=== PATIENT | female | born 1950 | race Caucasian/White ===

== ENCOUNTER → 2016-07-29 | Outpatient (CLI) | payer OTHER ==
[~2016-07-29] VITALS: Ht 172.7 cm; Wt 89.8 kg
[~2016-07-29] MED LIST: ABILIFY 2 MG2 M1 PO; ALLERGY10 M2 PO; ALPRAZOLAM 0.50.5 M1 PO; AMATIZA PO; AMBIEN 10 MG TA10 MG PO; AMBIEN CR 6.26.25 MG PO; AMBIENCR PO; AMITIZA 24 MCG24 MC1 PO; AMITRIPTYLINE H75 M1 PO; BACTRIM DS TAB1 EACH PO; BENICAR HCT 201 EACH PO; BENICAR20 MG PO; BRINTELLIX20 MG PO; BUSPIRONE HCL10 MG PO; CALCITRIOL0.5 MCG PO; CALTRATE-600 W1 EACH PO; CENTRUM TABLET1 EACH PO; CEVIMELINE HCL30 MG PO; CHLOR-TABLET4 MG PO; CIPROFLOXACIN500 M1 PO; CLONAZEPAM; CLONAZEPAM 0.50.5 M1 PO; CLONAZEPAM 1 MG1 M1 PO; CLONAZEPAM OR; CLONAZEPAM PO; COLACE100 MG PO; CORN SILK PO; CYMBALTA60 MG PO; DEPAKOTE 250MG250 M1 PO; DESYREL PO; DESYREL50 MG PO; DEXILANT60 MG PO; DIGESTIVE ENZY1 EAC2; ESTROGEL50 GM TD; EYE DROPS; FETZIMA PO; FISH OIL 1,001000 M2 PO; FLAX SEED OIL1000 MG PO; FLOMAX0.4 MG PO; FLUDROCORTISON0.1 MG PO; GEODON40 MG PO; GEODON60 MG PO; GEODON80 MG PO; GOTU KOLA PO; HORSETAIL PO; HYDROCODON-ACE1 EAC5; HYDROCODON-ACE1 EAC5 PO; HYDROCODON-ACE1 EAC7 PO; LAMICTAL XR50 MG PO; LAMOTRIGINE100 MG PO; LEVOTHYROXIN0.112 M1 PO; LEVOTHYROXINE0.05 MG PO; LEVOXYL25 MCG PO; MARSHMALLOW ROOT PO; METHOCARBAMOL750 MG PO; MIDODRINE HCL10 MG PO; MIDODRINE HCL2.5 M1 PO; MIRALAX17 GM PO; MIRALAX255 GM PO; MIRAPEX 0.250.25 M1 PO; MIRAPEX0.25 MG PO; MIRAPEX1 MG PO; NEURONTIN 300300 M1 PO; NEURONTIN 400400 M1 PO; NEURONTIN800 MG PO; NORCO 10-325 T1 EACH PO; NORCO 5-325 TA1 EACH PO; NORCO 7.5-3251 EACH PO; NUCYNTA50 MG PO; OLANZAPINE7.5 MG PO; ONDANSETRON HCL4 M2 PO; ONDANSETRON ODT4 MG PO; OXYCODONE-ACET1 EACH PO; PERCOCET 5-3251 EACH PO; PERCOCET OR; POLYETHYLENE G255 GM PO; POTASSIUM PO; POTASSIUM20 PO; PRELIEF65 MG PO; PREMARIN; PREMARIN0.45 MG PO; PREVACID 30MG C30 M1 PG; PREVACID 30MG C30 M1 PO; PROAIR HFA8.5 GM INH; PROTONIX40 M1 PO; PROZAC40 MG PO; REMERON15 MG PO; RESTASIS1 EACH OP; RESTASIS1 EACH OPHTHALMIC; ROBAXIN 750 MG750 M1 PO; SEROQUEL 25 MG25 M1 PO; SEROQUEL XR 30300 M1 PO; SKELAXIN 800 M800 M1 PO; SM FISH OIL 1,1 EACH PO; TAMSULOSIN HCL0.4 M1 PO; TIZANIDINE; TIZANIDINE HCL 22 M1 PO; TIZANIDINE HCL2 M1 PO; TIZANIDINE PO; TRAMADOL 50 MG50 MG PO; TRAZODONE 150150 M1 PO; TRAZODONE HCL PO; TUMS PO; UNICOMPLEX M TA1 TA1 PO; VIIBRYD20 MG PO; VIIBRYD40 MG PO; VITAMIN A PO; VITAMIN D-32000 UNIT PO; VITAMIN E400 UNIT PO; VITCB500GO PO; VOLTAREN GEL 1100 G1 TOP; WELLBUTRIN 75 M75 M1 PO; WELLBUTRIN XL300 MG PO; XANAX 0.5 MG0.5 M1 PO; XANAX XR2 MG PO; ZANAFLEX2 M1 PO; ZYPREXA 5 MG TAB5 M1 PO; [UNRECOGNIZED DRUG - CODE]; [UNRECOGNIZED DRUG - OTHER] PO; [UNRECOGNIZED DRUG - OTHER] PO; [UNRECOGNIZED DRUG - OTHER] PO
--- NOTE | ~2016-07-29 | HPC ---
[facility] [address] [place] [address] PAIN MANAGEMENT CONSULTATION Name: RUPA NELSON Room #: REG [facility] Marcia#: [id number] Admission: 07/29/16 Attend Phys: Manuelito Ascencio DO Discharge: Date of : 54 Report #: [id number] THIS REPORT FOR: //name// CC: Negin Ascencio The patient is a pleasant 65-year-old female typically treated for lumbar radiculopathy status post decompressive laminectomy, neuropathic pain requiring complex medication management. She has a spinal cord stimulator in place for lumbar radicular symptoms. Last visit was 03/25/2016. The patient was continued on baseline medication including hydrocodone 10/325 up to 4 a day, though 120 tablets typically lasts her 6-10 weeks. 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 She was referred to [facility] orthopedic group. She did have a steroid injection in her knee and symptoms nicely resolved. She returns to pain clinic today actually for a new complaint (recurrence of a prior cervical radicular issue for which she had been treated in April 2014). She notes back in April 2014, she had had a cervical epidural injection with dramatic improvement of baseline pain. She notes cervical radicular symptoms are beginning to recur without specific antecedent trauma. She notes pain in her neck, shoulders, left greater than right, paresthesia going into her fingers and hand. Rates her pain as 8 on a 0-10 visual analog scale. Seems to be exacerbated with activity, has been taking minimum medication with some efficacy. PHYSICAL EXAMINATION: VITAL SIGNS: Shows a 65-year-old female, BMI is 30.1 kilograms per meter squared, blood pressure is 117/89, pulse 69, respirations 15. NECK: Cervical range of motion is modestly limited. Positive Lhermitte's with some muscle tension noted in the trapezius and splenius capitis. EXTREMITIES: Upper extremity strength is generally symmetric, but modestly diminished about 3-4/5 to all muscle groups tested. DIAGNOSTIC STUDIES: Include an MRI from February 2014 noting cervical spondylosis at several levels, no dramatic likely surgical pathology noted. ASSESSMENT: Symptomatic cervical radiculopathy by clinical exam. The patient has had very significant relief with single cervical epidural injection nearly 2-1/2 years ago in April 2014. RECOMMENDATION: 1. We will refer to physical therapy. 2. We will trial Skelaxin for some muscle spasm. Methocarbamol did not have significant efficacy, tizanidine caused untoward sedation. Prescription for tizanidine 800 mg t.i.d. generated. Continue gabapentin 800 mg 1 in the morning, 1 at noon, 1-1/2 at night; dispense #105 tablets with two refills. [address] [address] PAIN MANAGEMENT CONSULTATION Name: RUPA NELSON Room #: REG [facility] Marcia#: [id number] Admission: 07/29/16 Attend Phys: Manuelito Ascencio DO Discharge: Date of : 54 Report #: [id number] Lastly, we will renew hydrocodone , dispensed 120 tablets. We reviewed the fact that opiate medications are being used to provide analgesia adequate to support activities of daily living, not attempting to achieve a specific pain score on the 0-10 Visual Analog Scale. The current opiate medications are providing sufficient analgesia to allow the patient to participate in activities of daily living. The patient is not exhibiting any aberrant behavior suggestive of drug diversion. The patient is not having any adverse reactions to medications. The patient is not suffering from daytime somnolence or mental acuity changes. The patient is managing opiate-induced constipation with appropriate joie-ipd-sxorjiy agents and dietary considerations. The patient was counseled on concern for caution with operating a motor vehicle while using opiate medications. A physical exam was performed and the patient's functional status was evaluated. All patients with back pain were advised against the bed rest greater than 4 days and were advised to return to normal activities. Pain score assessment was noted and the treatment plan was reviewed with the patient. All current medications, both prescribed and OTC were reviewed and reconciled on the electronic medical record. Tobacco screening was accomplished and smoking cessation was advised when indicated. BMI was noted and diet/exercise modification was recommended for all patients following outside normal parameters. I reviewed with the patient today their responsibilities to safeguard prescription medications, reviewed their responsibility to utilize medications only as prescribed by the physician. They are to seek and receive pain medications only from 1 physician group ( [facility]). They are to use 1 pharmacy and keep the clinic informed if they change pharmacies. Their responsibilities include making followup visits in a timely fashion and to avoid abrupt discontinuation of medication usage. Their responsibilities further include bringing their medications (bottles from the pharmacy with residual pills) to the visit for possible confirmation of pill counts and the patient understands it is their responsibility to submit to random drug screens to ensure both that the medications prescribed are present, and that no other controlled substances are present. All prescriptions provided today were generated electronically. ASSESSMENT: Acute exacerbation, symptomatic cervical radiculopathy. PROCEDURE: Cervical epidural injection under fluoroscopy. PROCEDURE NOTE: After written and informed consent was obtained including risk of dural puncture, spinal cord trauma, paralysis and increased pain, the patient was taken to the fluoroscopy suite and placed in the prone position, with appropriate abdominal bolstering, neck was flexed, palms under the thighs. Skin was prepped with ChloraPrep. Sterile draping was applied. Skin wheal with 1% Xylocaine was raised. A 22-gauge 3-1/2 inch epidural Tuohy needle was placed via a midline approach at the C7-T1 interspace, advanced under biplanar [address] [address] PAIN MANAGEMENT CONSULTATION Name: RUPA NELSON Room #: REG Vida Kennedy#: [id number] Admission: 07/29/16 Attend Phys: Manuelito Ascencio DO Discharge: Date of : 54 Report #: [id number] fluoroscopy using continuous loss of resistance. With appropriate loss of resistance at the expected depth on lateral view, the glass loss of resistance syringe was disconnected. A low volume extension tubing was connected to the needle and a 5 mL syringe. Negative aspiration for cerebrospinal fluid or blood was noted. One mL of Omnipaque was injected which showed spread within the epidural space on biplanar fluoroscopy. This was followed with 80 mg of triamcinolone plus 1 mL of 1.5% preservative Xylocaine. Needle was withdrawn to the interspinous ligament, 0.5 mL of Xylocaine was used to flush the needle. The needle was then completely withdrawn. The area was cleansed. Band-Aid was applied. The patient was allowed to move off the procedure table and ambulated to the recovery room, monitored for an appropriate period of time, discharged in good and stable condition. <ELECTRONICALLY SIGNED> By: Manuelito Ascencio DO 08/04/16 1031 [id number] Manuelito Ascencio DO /nt
[2016-07-29 13:50] VITALS: BP 117/89
== END | disposition home or self-care (01) ==
LOC: PAIN 07:31
DX: M54.12 Radiculopathy, cervical region (principal); Z87.891 Personal history of nicotine dependence; Z98.890 Other specified postprocedural states

== ENCOUNTER → 2016-10-28 | Outpatient (CLI) | payer OTHER ==
[~2016-10-28] VITALS: Ht 172.7 cm; Wt 98.4 kg
[~2016-10-28] MED LIST changes: +BUSPIRONE HCL15 MG PO; +LEVOTHYROXINE 0.1 MG PO; +OLANZAPINE20 MG PO; +RESTORIL15 MG PO
--- NOTE | ~2016-10-28 | HPC ---
[facility] [place] [address] [place] [address] PAIN MANAGEMENT CONSULTATION Name: RUPA NELSON Room #: REG [facility] Marcia#: [id number] Admission: 10/28/16 Attend Phys: Manuelito Ascencio DO Discharge: Date of : 54 Report #: [id number] THIS REPORT FOR: //name// CC: Negin Ascencio DATE OF SERVICE: 10/28/2016 The patient is a 65-year-old female, being treated for lumbar radiculopathy, status post decompressive laminectomy, ____ cervical radiculopathy and neuropathic pain requiring complex medication management. Last seen in pain clinic on 07/29/2016. I wrote for physical therapy for home exercise regimen for upper back and neck pain. Diagnosed with cervical radiculopathy and thoracic paravertebral muscle spasm. Unfortunately, the patient failed to act on this. She returns to pain clinic today noting medications are helpful. She uses spinal cord stimulator 24 hours a day. She has to charge it every 3-4 days for about 2 hours. Coverage is half way of her back and down her feet. She notes her low back pain is her rate limiting pain when doing house work. Again, primarily low back pain that is chronic, some radiation in the hips and legs. Some prior right knee DJD, had a steroid injection of the right knee by orthopedic surgeon about [address] Hyde injected Synvisc recently. She has not noticed significant efficacy yet. I suggested if it does not seem to be getting better, she may follow up with the orthopedic surgeon for consideration for total knee arthroplasty if indicated. PHYSICAL EXAMINATION: Shows 65-year-old female, BMI is 33 kg/m2. Vital signs stable as noted in the EMR. Somewhat flat affect. She has been working with her psychiatrist, managing multiple central acting agents including Buspirone 15 mg daily, olanzapine 20 mg at bedtime, Wellbutrin 300 mg a.m., clonazepam 2 mg at bedtime. From a pain standpoint, the patient does take gabapentin 800 mg one in the morning, one at noon, and one and a half at night. Metaxalone 800 mg up to 3 times a day for muscle spasm and hydrocodone 10/325 one tablet up to 4 times a day, though typically she averages 2-3. Last prescription for 120 tablets was 08/02/2016, clearly taking less than even two a day. We reviewed the fact that opiate medications are being used to provide analgesia adequate to support activities of daily living, not attempting to achieve a specific pain score on the 0-10 Visual Analog Scale. The current opiate medications are providing sufficient analgesia to allow the patient to participate in activities of daily living. The patient is not exhibiting any aberrant behavior suggestive of drug diversion. The patient is not having any adverse reactions to medications. The patient is not suffering from daytime somnolence or mental acuity changes. The patient is managing opiate-induced constipation with appropriate lkhb-ako-sikoxow agents and dietary considerations. The patient was counseled on concern for caution with operating a motor vehicle while using opiate medications. [address] [address] PAIN MANAGEMENT CONSULTATION Name: RUPA NELSON Room #: REG CL[facility]ida Kennedy#: [id number] Admission: 10/28/16 Attend Phys: Manuelito Ascencio DO Discharge: Date of : 54 Report #: [id number] A physical exam was performed and the patient's functional status was evaluated. All patients with back pain were advised against the bed rest greater than 4 days and were advised to return to normal activities. Pain score assessment was noted and the treatment plan was reviewed with the patient. All current medications, both prescribed and OTC were reviewed and reconciled on the electronic medical record. Tobacco screening was accomplished and smoking cessation was advised when indicated. BMI was noted and diet/exercise modification was recommended for all patients following outside normal parameters. I reviewed with the patient today their responsibilities to safeguard prescription medications, reviewed their responsibility to utilize medications only as prescribed by the physician. They are to seek and receive pain medications only from 1 physician group ( [facility]). They are to use 1 pharmacy and keep the clinic informed if they change pharmacies. Their responsibilities include making followup visits in a timely fashion and to avoid abrupt discontinuation of medication usage. Their responsibilities further include bringing their medications (bottles from the pharmacy with residual pills) to the visit for possible confirmation of pill counts and the patient understands it is their responsibility to submit to random drug screens to ensure both that the medications prescribed are present, and that no other controlled substances are present. All prescriptions provided today were generated electronically. ASSESSMENT: Cervical radiculopathy by history, lumbar radiculopathy status post decompressive laminectomy, neuropathic pain requiring complex medication management, stable on baseline medication. Good relief with single epidural injection at last visit in July. Greater than 60% relief ongoing with primary pain being low back at this point. RECOMMENDATION: Continue current schedule 2 narcotic unchanged, hydrocodone 10/325 up to 4 times a day, though typically she uses much less than this. We will have her follow up when this prescription starts to run out. Continue Skelaxin 800 mg up to t.i.d., prescription renewed today, continue gabapentin. She does not require this prescription renewed. I did recreate the physical therapy consult and discuss with the patient rationale for wanting her to engage in regular range of motion, stretching and activity. She has a component of myofascial pain with upper back muscle tenderness, which becomes problematic more and still in the mornings. Recommended routine exercise range of motion to help with "myofascial" type pain, strengthen core muscles, improve balance and help with osteoporosis. Discharged in good and stable condition. By: [id number] Manuelito Ascencio, DO /nt
[2016-10-28 12:40] VITALS: BP 122/81
== END ==
LOC: PAIN 07:06
DX: M54.16 Radiculopathy, lumbar region (principal); M96.1 Postlaminectomy syndrome, not elsewhere classified; I10 Essential (primary) hypertension; Z87.891 Personal history of nicotine dependence; F32.9 Major depressive disorder, single episode, unspecified

== ENCOUNTER → 2016-12-30 | Outpatient (CLI) | payer OTHER ==
[~2016-12-30] VITALS: Ht 172.7 cm; Wt 97.3 kg
[~2016-12-30] MED LIST changes: +ESTRADIOL; +HYDRALAZINE 10M10 MG PO; +SUPER B COMPLE150 MG PO; +VITAMIN D1000 UNIT PO; +WELLBUTRIN XL150 MG PO
--- NOTE | ~2016-12-30 | HPC ---
[facility] [address] [address] [place] [address] PAIN MANAGEMENT CONSULTATION Name: RUPA NELSON [id number] Admission: 12/30/16 Attend Phys: Manuelito Ascencio DO Discharge: Date of : 54 Report #: [id number] THIS REPORT FOR: //name// CC: Negin Ascencio DATE OF SERVICE: 12/30/2016 The patient is a very pleasant 66-year-old female typically treated for lumbar radiculopathy status post decompressive laminectomy, history of cervical radiculopathy, neuropathic pain requiring complex medication management. She was last seen in the pain clinic 10/28/2016, continued on hydrocodone 10/325 up to 4 a day, Skelaxin 800 mg t.i.d., and gabapentin. Prior epidural injection in July afforded about 60% ongoing relief. Returns to pain clinic today noting medications are generally providing sufficient analgesia to participate in activities of daily living, chronic low back pain with some recent flareup a month ago with radicular pain going down the right leg. She rates the pain a 4/10, exacerbated with bending. PHYSICAL EXAMINATION: Shows a 66-year-old female, somewhat flat affect, compatible with her history, multiple psychiatric drugs used including olanzapine, temazepam at bedtime, bupropion, clonazepam, mirtazapine. Rises from the chair using armrest. Gait is tandem. Diffuse tenderness across the low back, positive straight leg raise bilaterally. Vital signs stable as noted in the EMR. We reviewed the fact that opiate medications are being used to provide analgesia adequate to support activities of daily living, not attempting to achieve a specific pain score on the 0-10 Visual Analog Scale. The current opiate medications are providing sufficient analgesia to allow the patient to participate in activities of daily living. The patient is not exhibiting any aberrant behavior suggestive of drug diversion. The patient is not having any adverse reactions to medications. The patient is not suffering from daytime somnolence or mental acuity changes. The patient is managing opiate-induced constipation with appropriate nnro-ann-oxjugsj agents and dietary considerations. The patient was counseled on concern for caution with operating a motor vehicle while using opiate medications. A physical exam was performed and the patient's functional status was evaluated. All patients with back pain were advised against the bed rest greater than 4 days and were advised to return to normal activities. Pain score assessment was noted and the treatment plan was reviewed with the patient. All current medications, both prescribed and OTC were reviewed and reconciled on the electronic medical record. Tobacco screening was accomplished and smoking [address] [address] PAIN MANAGEMENT CONSULTATION Name: RUPA NELSON Room #: REG [facility] Marcia#: [id number] Admission: 12/30/16 Attend Phys: Manuelito Ascencio DO Discharge: Date of : 54 Report #: [id number] cessation was advised when indicated. BMI was noted and diet/exercise modification was recommended for all patients following outside normal parameters. I reviewed with the patient today their responsibilities to safeguard prescription medications, reviewed their responsibility to utilize medications only as prescribed by the physician. They are to seek and receive pain medications only from 1 physician group ( [facility]). They are to use 1 pharmacy and keep the clinic informed if they change pharmacies. Their responsibilities include making followup visits in a timely fashion and to avoid abrupt discontinuation of medication usage. Their responsibilities further include bringing their medications (bottles from the pharmacy with residual pills) to the visit for possible confirmation of pill counts and the patient understands it is their responsibility to submit to random drug screens to ensure both that the medications prescribed are present, and that no other controlled substances are present. All prescriptions provided today were generated electronically. ASSESSMENT #1: Symptomatic lumbar radiculopathy status post decompressive laminectomy, cervical radiculopathy, neuropathic pain requiring complex medication management. RECOMMENDATION: Continue hydrocodone 10/325 up to 4 a day, Skelaxin 800 mg t.i.d., gabapentin. Urine drug screen was accomplished today. No aberrant behavior suggestive for drug diversion. Simply, I noticed that with our opiate consent to treat contract, she has not had a urine screen in greater than a year. ASSESSMENT #2: Acute exacerbation of lumbar radiculopathy in a patient who is status post decompressive laminectomy. RECOMMENDATION: Repeat epidural injection under fluoroscopy today. She had excellent relief with injection back in July. PROCEDURE NOTE: Lumbar epidural injection under fluoroscopy. PROCEDURE NOTE: After both written and informed consent to include risk of spinal cord damage, increased pain, weakness and dural puncture, the patient was taken to the fluoroscopy suite, placed in the prone position. After sterile prep and drape, a skin wheal with lidocaine was raised. A 22-gauge epidural Tuohy needle was inserted in the midline at L5-S1 with good loss to resistance. Negative aspiration for cerebrospinal fluid or blood was noted. Then 1 mL of Omnipaque under biplanar fluoroscopy showed good spread within the epidural space. This was followed with 80 mg of triamcinolone plus 1 mL of 1.5% preservative-free Xylocaine, 0.5 mL Xylocaine was then injected to flush the [facility] [address] [place] [address] PAIN MANAGEMENT CONSULTATION Name: RUPA NELSON Room #: REG CLV[facility] GrossmanAlem#: [id number] Admission: 12/30/16 Attend Phys: Manuelito Ascencio DO Discharge: Date of : 54 Report #: [id number] needle; it was removed. The patient was monitored for an appropriate period of time and discharged in good and stable condition. <ELECTRONICALLY SIGNED> By: Manuelito Ascencio DO 12/31/16 0948 [id number] Manuelito Ascencio DO /nt
[2016-12-30 13:23] VITALS: BP 100/74
== END ==
LOC: PAIN 07:08
DX: M54.16 Radiculopathy, lumbar region (principal); M54.12 Radiculopathy, cervical region; I10 Essential (primary) hypertension; Z87.891 Personal history of nicotine dependence; M06.849 Other specified rheumatoid arthritis, unspecified hand; M71.20 Synovial cyst of popliteal space [Baker], unspecified knee

== ENCOUNTER → 2017-02-25 | Outpatient (CLI) | payer OTHER ==
[~2017-02-25] VITALS: Ht 172.7 cm; Wt 96.8 kg
--- NOTE | ~2017-02-25 | HPC ---
[facility] [address] [place] [address] PAIN MANAGEMENT CONSULTATION Name: RUPA NELSON [facility] [id number] Admission: 02/25/17 Attend Phys: Manuelito Ascencio DO Discharge: Date of : 54 Report #: [id number] THIS REPORT FOR: //name// CC: Negin Ascencio HISTORY OF PRESENT ILLNESS: The patient is a 66-year-old female last seen in pain clinic on 12/30/2016. She has a history of lumbar decompressive laminectomy, cervical radiculopathy requiring complex medication management. The patient was continued on hydrocodone 10/325 up to 4 a day, Skelaxin for spasm and gabapentin. Given epidural injection L5-S1. Urine drug screen at that time was positive for prescribed medications. She returns to the pain clinic today noting that the epidural injection afforded good relief of the radicular pain component, but she now has some pain over that left hip. Again, she notes about 80% improvement following the epidural injection, but the new pain is subsequent to a trip and fall while she was walking her dog. Very tender over the right trochanteric bursa. Pain is exacerbated with standing, walking and with active resistance to abduction. Passive rotation of the hip was unremarkable. Again, the radicular symptoms seemed to be somewhat improved overall. Subjective pain score is 5 on a VAS. PHYSICAL EXAMINATION: VITAL SIGNS: Show modest hypertension 160/90, pulse 91, and respirations 16. ASSESSMENT: 1. Symptomatic lumbar radiculopathy status post decompressive laminectomy, cervical radiculopathy requiring complex medication management, high risk medications. RECOMMENDATION: Continue medications unchanged, I have taken the liberty of renewing her Metaxalone 800 mg t.i.d. and hydrocodone 10/325 one tablet up to 4 times a day. She does not require renewal of the gabapentin. ASSESSMENT: 2. Acute exacerbation of right trochanteric bursitis. RECOMMENDATIONS: Trochanteric bursa injection today. PROCEDURE NOTE: After written informed consent was obtained, the patient was placed in the left lateral decubitus position. Skin overlying the right trochanteric bursa was cleansed with ChloraPrep. Skin wheal with Xylocaine was raised. A 22-gauge stylet needle was placed to contact the point of maximal tenderness over the right trochanteric bursa and the stylet was removed, [address] [address] PAIN MANAGEMENT CONSULTATION Name: RUPA NELSON Room #: REG [facility] Marcia#: [id number] Admission: 02/25/17 Attend Phys: Manuelito Ascencio DO Discharge: Date of : 54 Report #: [id number] triamcinolone plus 3 mL of 0.5% preservative-free bupivacaine was injected. Needle was removed. The area was cleansed, Band-Aids applied. The patient was told to watch area for infection, ice today. Follow up simply as needed for medication management. Continue range of motion and activity. By: [id number] Manuelito Ascencio, DO /nt
[2017-02-25 11:10] VITALS: BP 160/90
== END | disposition home or self-care (01) ==
LOC: PAIN 01-20 08:05
DX: M70.61 Trochanteric bursitis, right hip (principal); G89.29 Other chronic pain; M54.16 Radiculopathy, lumbar region; M54.12 Radiculopathy, cervical region; Z98.890 Other specified postprocedural states; Z79.891 Long term (current) use of opiate analgesic; Z87.891 Personal history of nicotine dependence; Z88.8 Allergy status to other drugs, medicaments and biological substances

== ENCOUNTER → 2017-04-22 | Outpatient (CLI) | payer OTHER ==
[~2017-04-22] VITALS: Ht 172.7 cm; Wt 98.0 kg
[~2017-04-22] MED LIST changes: +CALCIUM 500 +1 EAC5 PO
--- NOTE | ~2017-04-22 | HPC ---
[facility] [place] [address] PAIN MANAGEMENT CONSULTATION Name: RUPA NELSON Room #: REG [facility] Marcia#: [id number] Admission: 04/22/17 Attend Phys: Manuelito Ascencio DO Discharge: Date of : 54 Report #: [id number] THIS REPORT FOR: //name// CC: Oc Ascencio DATE OF SERVICE: 04/22/2017 The patient is a 66-year-old female well known to the pain clinic, typically treated for lumbar radiculopathy status post decompressive laminectomy, cervical radiculopathy, requiring high risk complex medication management. She has a spinal cord stimulator in place. Last visit, 02/25/2017, we did a right trochanteric bursa injection for acute right leg pain. This gave her excellent relief. She prior had epidural injections, cervical epidural injection in July and lumbar epidural injection in December. She returns to pain clinic today, noting she was actually doing quite well until she suffered a fall, she fell 3 weeks ago, striking her right hip. She was camping and simply tripped over a trivial object. She notes pain is quite problematic, she rates it a 5 on VAS, chronic low back pain, but exquisite pain over the right hip, exacerbated by standing, walking, weightbearing. PHYSICAL EXAMINATION: GENERAL: Shows 66-year-old female, BMI is 32.9 kg per meter squared. VITAL SIGNS: Stable, as noted in the EMR. MUSCULOSKELETAL: Rises from chair using armrest, antalgic gait favoring the right leg. Passive rotation of the right hip significantly exacerbates pain. Active abduction; however, does not exacerbate pain, pointing more to primary hip pathology rather than trochanteric bursitis. We discussed this with the patient today at length. The patient continues to take hydrocodone 10/325 one tablet 2-3 times a day, last 120 tablets prescription 02/25/2017 lasted about 6 weeks. Metaxalone 800 mg t.i.d. for spasm has been efficacious as well. ASSESSMENT: 1. Lumbar radiculopathy status post decompressive laminectomy; chronic pain syndrome; cervical radiculopathy by history, requiring high risk complex medication management, stable on baseline medications. Urine drug screen at last visit 12/30/2016 is positive for prescribed medication (hydrocodone and metabolites). 2. Acute right hip degenerative joint disease. We reviewed the fact that opiate medications are being used to provide analgesia adequate to support activities of daily living, not attempting to achieve a [address] [address] PAIN MANAGEMENT CONSULTATION Name: KOSTAKAVITARUPA A [id number] Admission: 04/22/17 Attend Phys: Manuelito Ascencio DO Discharge: Date of : 54 Report #: [id number] specific pain score on the 0-10 Visual Analog Scale. The current opiate medications are providing sufficient analgesia to allow the patient to participate in activities of daily living. The patient is not exhibiting any aberrant behavior suggestive of drug diversion. The patient is not having any adverse reactions to medications. The patient is not suffering from daytime somnolence or mental acuity changes. The patient is managing opiate-induced constipation with appropriate ysdx-uxj-fjozxya agents and dietary considerations. The patient was counseled on concern for caution with operating a motor vehicle while using opiate medications. A physical exam was performed and the patient's functional status was evaluated. All patients with back pain were advised against the bed rest greater than 4 days and were advised to return to normal activities. Pain score assessment was noted and the treatment plan was reviewed with the patient. All current medications, both prescribed and OTC were reviewed and reconciled on the electronic medical record. Tobacco screening was accomplished and smoking cessation was advised when indicated. BMI was noted and diet/exercise modification was recommended for all patients following outside normal parameters. I reviewed with the patient today their responsibilities to safeguard prescription medications, reviewed their responsibility to utilize medications only as prescribed by the physician. They are to seek and receive pain medications only from 1 physician group ( [facility]). They are to use 1 pharmacy and keep the clinic informed if they change pharmacies. Their responsibilities include making followup visits in a timely fashion and to avoid abrupt discontinuation of medication usage. Their responsibilities further include bringing their medications (bottles from the pharmacy with residual pills) to the visit for possible confirmation of pill counts and the patient understands it is their responsibility to submit to random drug screens to ensure both that the medications prescribed are present, and that no other controlled substances are present. All prescriptions provided today were generated electronically. RECOMMENDATION: Right hip joint injection under fluoroscopy. PROCEDURE: After written informed consent was obtained, patient was taken to the fluoroscopy suite and placed in the supine position. After sterile prep and drape, skin wheal with Xylocaine was raised. A 22-gauge stylet needle was placed to contact the proximal aspect of the right femur adjacent to the acetabulum. Negative aspiration was accomplished. 1 mL of Omnipaque was injected, which showed good arthrogram. This was followed with 40 mg triamcinolone plus 2 mL of 0.5% preservative-free bupivacaine. The patient was told to use ice to the area today, watch for signs of infection. Please note she was discharged in good and stable condition, noting significant improvement [address] [address] PAIN MANAGEMENT CONSULTATION Name: RUPA NELSON Room #: REG [facility]#: [id number] Admission: 04/22/17 Attend Phys: Manuelito Ascencio DO Discharge: Date of : 54 Report #: [id number] in her baseline pain, in fact noting her pain was down to 2 on a VAS. Follow up simply as needed. Fluoroscopy time was under 5 seconds. <ELECTRONICALLY SIGNED> By: Manuelito Ascencio DO 04/29/17 0657 [id number] [id number] Manuelito Ascencio DO /nt
[2017-04-22 10:09] VITALS: BP 132/89
== END | disposition home or self-care (01) ==
LOC: PAIN 07:11
DX: M16.11 Unilateral primary osteoarthritis, right hip (principal); M54.16 Radiculopathy, lumbar region; M54.12 Radiculopathy, cervical region; Z98.890 Other specified postprocedural states; Z68.32 Body mass index [BMI] 32.0-32.9, adult

== ENCOUNTER → 2017-07-07 | Outpatient (CLI) | payer OTHER ==
[~2017-07-07] VITALS: Ht 170.2 cm; Wt 104.3 kg
--- NOTE | ~2017-07-07 | HPC ---
[facility] [place] [address] PAIN MANAGEMENT CONSULTATION Name: RUPA NELSON Room #: REG Vida Grossman.#: [id number] Admission: 07/07/17 Attend Phys: Manuelito Ascencio DO Discharge: Date of : 54 Report #: [id number] THIS REPORT FOR: //name// CC: Oc Ascencio The patient is a 66-year-old female, typically treated for lumbar radiculopathy status post decompressive laminectomy, history of cervical radiculopathy requiring high risk complex medication management. Today, she was complaining specifically of pain primarily in the right gluteal area. She does have trigger points in the piriformis and gluteus ángel. Rates her pain 8 on a VAS. Prior right hip injection at last visit afforded only nominal relief per the patient. She continues to take hydrocodone 10 mg up to 4 times a day, though 120 tablets lasted about 6 weeks last time. The patient was in the ER 07/04/2017, with some right leg pain. Incidentally, a urine drug screen 12/30/2016, was positive for prescribed medications. PHYSICAL EXAMINATION: Today, again does show a 66-year-old female, BMI is 36 kg/m2. Tender over the right gluteal area, some pain with piriformis contraction. Straight leg raise is negative. Rubi test is negative. Lower extremity strength is generally preserved. Well-healed surgical scar compatible with prior lumbar decompressive laminectomy. We reviewed the fact that opiate medications are being used to provide analgesia adequate to support activities of daily living, not attempting to achieve a specific pain score on the 0-10 Visual Analog Scale. The current opiate medications are providing sufficient analgesia to allow the patient to participate in activities of daily living. The patient is not exhibiting any aberrant behavior suggestive of drug diversion. The patient is not having any adverse reactions to medications. The patient is not suffering from daytime somnolence or mental acuity changes. The patient is managing opiate-induced constipation with appropriate onxi-qaa-tqchfbg agents and dietary considerations. The patient was counseled on concern for caution with operating a motor vehicle while using opiate medications. A physical exam was performed and the patient's functional status was evaluated. All patients with back pain were advised against the bed rest greater than 4 days and were advised to return to normal activities. Pain score assessment was noted and the treatment plan was reviewed with the patient. All current medications, both prescribed and OTC were reviewed and reconciled on the electronic medical record. Tobacco screening was accomplished and smoking cessation was advised when indicated. BMI was noted and diet/exercise modification was recommended for all patients following outside normal parameters. [address] [address] PAIN MANAGEMENT CONSULTATION Name: RUPA NELSON Room #: REG [facility] Kennedy#: [id number] Admission: 07/07/17 Attend Phys: Manuelito Ascencio DO Discharge: Date of : 54 Report #: [id number] I reviewed with the patient today their responsibilities to safeguard prescription medications, reviewed their responsibility to utilize medications only as prescribed by the physician. They are to seek and receive pain medications only from 1 physician group ( [facility]). They are to use 1 pharmacy and keep the clinic informed if they change pharmacies. Their responsibilities include making followup visits in a timely fashion and to avoid abrupt discontinuation of medication usage. Their responsibilities further include bringing their medications (bottles from the pharmacy with residual pills) to the visit for possible confirmation of pill counts and the patient understands it is their responsibility to submit to random drug screens to ensure both that the medications prescribed are present, and that no other controlled substances are present. All prescriptions provided today were generated electronically. ASSESSMENT: Lumbar radiculopathy status post decompressive laminectomy, history of cervical radiculopathy, requiring high risk complex medication management, stable on baseline medications. RECOMMENDATIONS: 1. Renew hydrocodone 10/325 up to 4 tablets a day, dispense 120 tablets. 2. Trigger point injection accomplished today, right gluteus ángel and piriformis under fluoroscopy. PROCEDURE NOTE: After written informed consent was obtained, the patient was taken to the fluoroscopy suite, placed in prone position. After sterile prep and drape, a skin wheal with Xylocaine was raised. A 6-inch 22-gauge Chiba needle was placed to contact the inferior aspect of the right SI joint. Depth was noted. Needle was withdrawn approximately 1 inch, redirected and advanced approximately 1-2 cm deeper past the SI joint into the piriformis muscle. A 20 mg triamcinolone plus 4 mL of 0.5% preservative-free bupivacaine plus 1.5% preservative-free Xylocaine with 1:20,000 epinephrine was injected. Attention was then directed at the gluteus ángel trigger point and the residual 20 mg of triamcinolone plus 4 mL of the local anesthetic was injected here. Needle was removed, the area was cleansed, Band-Aids applied. The patient was allowed to ambulate to recovery room. She did have some subjective weakness in the buttock and leg, she was monitored for appropriate time, discharged in stable condition. Follow up simply as needed. By: 0848 [id number] Manuelito Ascencio, DO /nt
[2017-07-07 12:46] VITALS: BP 121/81
== END | disposition home or self-care (01) ==
LOC: PAIN
DX: M79.1 Myalgia (principal); G89.29 Other chronic pain; M54.16 Radiculopathy, lumbar region; M54.12 Radiculopathy, cervical region; Z98.890 Other specified postprocedural states; Z87.891 Personal history of nicotine dependence; Z79.891 Long term (current) use of opiate analgesic; Z79.899 Other long term (current) drug therapy; Z88.6 Allergy status to analgesic agent

== ENCOUNTER 2017-07-24 17:15 | Emergency (ER) | payer OTHER ==
[~2017-07-24] VITALS: Ht 170.2 cm; Wt 104.3 kg
[2017-07-24 19:43] VITALS: BP 157/94
[2017-08-04] MEDS ORDERED: PERCOCET 7.5-31 EAC1 PO (12:55)
[2017-08-29] MEDS ORDERED: ROCALTROL0.5 MCG PO (11:28)
[2017-08-29] MEDS ORDERED: NORCO 7.5-3251 EACH PO (11:43)
[2017-08-29] MEDS ORDERED: HYDROCODON-ACE1 EAC5 PO (11:43)
[2017-08-29] MEDS ORDERED: PERCOCET 7.5-31 EACH PO (11:47)
[2017-08-29] MEDS ORDERED: PERCOCET 7.5-31 EAC1 PO (11:47)
[2017-09-08] MEDS ORDERED: AMITIZA 24 MCG24 MC1 PO (12:57)
[2017-09-08] MEDS ORDERED: NEURONTIN800 MG PO (13:17)
[2017-12-05] MEDS ORDERED: PERCOCET 5-3251 EACH PO (09:48)
[2018-01-05] MEDS ORDERED: XIIDRA1 EACH (09:33)
[2018-01-05] MEDS ORDERED: FLORINEF ACETA0.1 MG PO (09:33)
[2018-01-05] MEDS ORDERED: ASPIRIN325 PO (09:42)
[2018-01-05] MEDS ORDERED: PERCOCET 5-3251 EACH PO (09:49)
[2018-03-29] MEDS ORDERED: PERCOCET 7.5-31 EACH PO (10:29)
[2018-03-29] MEDS ORDERED: NEURONTIN800 MG PO (10:29)
[2018-03-29] MEDS ORDERED: PERCOCET 7.5-31 EAC1 PO (10:29)
[2018-03-29] MEDS ORDERED: VOLTAREN GEL 1100 G1 TOP (10:29)
[2018-03-29] MEDS ORDERED: SKELAXIN 800 M800 M1 PO (10:29)
== END 2017-07-24 19:44 | disposition home or self-care (01) ==
LOC: ER 17:15
DX: S39.012A Strain of muscle, fascia and tendon of lower back, initial encounter (principal); K21.9 Gastro-esophageal reflux disease without esophagitis; F32.9 Major depressive disorder, single episode, unspecified; F31.9 Bipolar disorder, unspecified; K46.9 Unspecified abdominal hernia without obstruction or gangrene; M79.7 Fibromyalgia; J45.909 Unspecified asthma, uncomplicated; Z98.890 Other specified postprocedural states; E03.9 Hypothyroidism, unspecified; Z87.890 Personal history of sex reassignment; W10.8XXA Fall (on) (from) other stairs and steps, initial encounter; Y93.89 Activity, other specified; Y92.254 Theater (live) as the place of occurrence of the external cause; Y99.8 Other external cause status

== ENCOUNTER → 2017-07-29 | Outpatient (CLI) | payer OTHER ==
[~2017-07-29] MED LIST changes: +ASPIRIN325 PO; +FLORINEF ACETA0.1 MG PO; +PERCOCET 7.5-31 EAC1 PO; +PERCOCET 7.5-31 EACH PO; +ROCALTROL0.5 MCG PO; +XIIDRA1 EACH
== END ==
LOC: RAD 09:57
DX: M16.11 Unilateral primary osteoarthritis, right hip (principal); Z98.890 Other specified postprocedural states

== ENCOUNTER → 2017-08-04 | Outpatient (CLI) | payer OTHER ==
[~2017-08-04] VITALS: Ht 170.2 cm; Wt 104.3 kg
--- NOTE | ~2017-08-04 | HPC ---
[facility] [place] [address] PAIN MANAGEMENT CONSULTATION Name: RUPA NELSON Room #: REG [place] Grossman.#: [id number] Admission: 08/04/17 Attend Phys: Manuelito Ascencio DO Discharge: Date of : 54 Report #: [id number] THIS REPORT FOR: //name// CC: Alonzo Ascenico HISTORY OF PRESENT ILLNESS: The patient is a 66-year-old female typically treated for lumbar radiculopathy status post decompressive laminectomy, history of cervical radiculopathy requiring high risk complex medication management. The patient was last seen in pain clinic on 07/07/2017, continued on hydrocodone 10/325 up to 4 a day. She was given trigger point injections for right gluteus medius and right piriformis. She did have some weakness with spread of local anesthetic to the sciatic nerve. She returns to the pain clinic today with ongoing pain concerns. We had a prolonged visit from 12:40-13:05 greater than 50% of this time was spent counseling the patient. She had fallen on 07/24/2017. She denies that her legs "gave out." She simply tripped. She did, however, have some trauma to her head. She was taken to the ER. Had exacerbation of low back pain. CT showed no acute changes of the neck. She does have some DJD in the cervical spine. She was discharged with a soft C-collar, she has stopped using that. She presents to pain clinic today with ongoing pain in the low back, complaining primarily of right greater than left low back pain. She rates her pain as 8 on a VAS. She states pain is exacerbated with any weightbearing, standing and bending. She notes spinal cord stimulator ([employer]) helped some with low back pain. We did request that the [employer] sales representative electric service come today to see if they can reprogram stimulator to get better relief of the radicular pain component. Again, it does help some with the back pain. The patient has been taking hydrocodone 10/325 four a day for a number of years. It looks like we increased from 5 to 10 mg of hydrocodone around 2013, she has been stable on that. Incidentally, last random drug screen on 12/30/2016 was positive for prescribed medications. She uses gabapentin fairly high dose 800 mg 1 tab in the morning, 1 at noon, 1.5 at night, 2800 mg daily. This too she has been on for "years." Skelaxin 800 mg t.i.d. She has been on muscle relaxers for "years," Skelaxin for about 1 year. She is on multiple central-acting agents for bipolar disorder including Zyprexa, temazepam, clonazepam, Remeron and bupropion. [facility] [address] [place] [address] PAIN MANAGEMENT CONSULTATION Name: RUPA NELSON Room #: REG [place] Kennedy#: [id number] Admission: 08/04/17 Attend Phys: Manuelito Ascencio DO Discharge: Date of : 54 Report #: [id number] The patient did get a CT scan of the right hip from Dr. Oc Hyde, apparently this was done at another hospital, but per verbal reports did not show significant pathology. PHYSICAL EXAMINATION: Shows a 66-year-old female, BMI is 36 kilograms per meter squared. Blood pressure is 127/75, pulse 77, respirations 16. Moderately obese, BMI is 36 kilograms per meter squared. She rises from chair using armrest, does have a markedly antalgic gait. Lumbar flexion is limited to 50 degrees. Diffuse tenderness across the low back. No discrete trigger points are noted at this time. She is tender in the L5-S1 and SI area. Grossly positive straight leg raise on the right, decreased right hip flexion, lower extremity extension and dorsiflexion strength in the right compared to left, perhaps 3/5 versus 4/5. Patellar reflex is diminished on the right, with isometric contraction it is perhaps 1/4, with isometric contraction patellar reflex is 2/4 in the left. Achilles reflex 0-1/4. Discussion with the patient today about therapeutic options, we would like to get a new diagnostic study of the lumbar spine, with the spinal cord stimulator an MRI is contraindicated. We will see if we can order a CT myelogram of the lumbar spine. We will trial opiate rotation, roughly equally analgesic to 10 mg hydrocodone would be Percocet 7.5/325. Given that she has been on hydrocodone 10 mg 4 times a day for 3-4 years, I think rotation to Percocet 7.5/325 four a day should provide a little better efficacy as it will be a relatively "novel" opiate to her receptors. We will trial this for 30 days. ASSESSMENT: 1. Symptomatic lumbar radiculopathy status post decompressive laminectomy. 2. Ongoing bilateral radicular pain, right greater than left. 3. Requiring high risk complex medication management. RECOMMENDATIONS: 1. Medication changes as noted above. 2. CT myelogram of lumbar spine. 3. Spinal cord stimulator reprogrammed by [employer] sales representative electric service today. This occurred after my [facility] clinic visit. Follow up in 3-4 weeks to evaluate efficacy of medication changes and review the CT myelogram. <ELECTRONICALLY SIGNED> By: Manuelito Ascencio DO 08/05/17 0954 1302 49 Manuelito Ascencio DO /siva
[2017-08-04 12:36] VITALS: BP 127/75
== END ==
LOC: PAIN 06:42
DX: M54.16 Radiculopathy, lumbar region (principal); M54.12 Radiculopathy, cervical region; Z98.890 Other specified postprocedural states; Z79.899 Other long term (current) drug therapy

== ENCOUNTER → 2017-08-10 | Outpatient (CLI) | payer OTHER | END | disposition home or self-care (01) | LOC: RAD 08:12 | DX: M51.06 Intervertebral disc disorders with myelopathy, lumbar region (principal); M46.96 Unspecified inflammatory spondylopathy, lumbar region; Z98.890 Other specified postprocedural states; Z88.6 Allergy status to analgesic agent; Z79.891 Long term (current) use of opiate analgesic; Z79.899 Other long term (current) drug therapy ==

== ENCOUNTER → 2017-08-29 | Outpatient (CLI) | payer OTHER ==
[~2017-08-29] VITALS: Ht 170.2 cm; Wt 105.4 kg
--- NOTE | ~2017-08-29 | HPC ---
[facility] [place] [address] PAIN MANAGEMENT CONSULTATION Name: RUPA NELSON Room #: REG [place] Grossman.#: [id number] Admission: 08/29/17 Attend Phys: Manuelito Ascencio DO Discharge: Date of : 54 Report #: [id number] THIS REPORT FOR: //name// CC: [facility] physician/PCP Manuelito Ascencio DATE OF SERVICE: 08/29/2017 HISTORY OF PRESENT ILLNESS: The patient is a 66-year-old female being treated for symptomatic lumbar radiculopathy status post decompressive laminectomy, bipolar disorder, requiring complex medication management. She has a spinal cord stimulator in place with ongoing pain radiating into the low back, right leg and groin. I have done a right piriformis injection at last visit, which the patient states afforded only nominal relief. She notes pain has continued to be tingling and gnawing, rates it as a 6 on a VAS. We reviewed the patient's CT myelogram, which was accomplished on 08/10/2017. Shows the prior fusion at L4-L5; however, she does have neural foraminal narrowing at L4-L5, which does correspond to her right L4 radicular pattern pain. Discussion with the patient today about therapeutic options. We have rotated from hydrocodone 10/325 to Percocet 7.5/325 four a day with efficacy. The patient notes pain continues to be problematic and is interfering with functio Today, we have elected to simply renew Percocet 7.5/325 four a day pending followup with Dr. Garzon. We may consider right L4-L5 transforaminal epidural injection (selective nerve root block sans steroid? ) depending on Dr. Garzon's input. We reviewed the fact that opiate medications are being used to provide analgesia adequate to support activities of daily living, not attempting to achieve a specific pain score on the 0-10 Visual Analog Scale. The current opiate medications are providing sufficient analgesia to allow the patient to participate in activities of daily living. The patient is not exhibiting any aberrant behavior suggestive of drug diversion. The patient is not having any adverse reactions to medications. The patient is not suffering from daytime somnolence or mental acuity changes. The patient is managing opiate-induced constipation with appropriate khkc-pvq-lwtqazq agents and dietary considerations. The patient was counseled on concern for caution with operating a motor vehicle while using opiate medications. A physical exam was performed and the patient's functional status was evaluated. All patients with back pain were advised against the bed rest greater than [address] [address] PAIN MANAGEMENT CONSULTATION Name: RUPA NELSON [facility] [id number] Admission: 08/29/17 Attend Phys: Manuelito Ascencio DO Discharge: Date of : 54 Report #: [id number] days and were advised to return to normal activities. Pain score assessment was noted and the treatment plan was reviewed with the patient. All current medications, both prescribed and OTC were reviewed and reconciled on the electronic medical record. Tobacco screening was accomplished and smoking cessation was advised when indicated. BMI was noted and diet/exercise modification was recommended for all patients following outside normal parameters. I reviewed with the patient today their responsibilities to safeguard prescription medications, reviewed their responsibility to utilize medications only as prescribed by the physician. They are to seek and receive pain medications only from 1 physician group ( [facility]). They are to use 1 pharmacy and keep the clinic informed if they change pharmacies. Their responsibilities include making followup visits in a timely fashion and to avoid abrupt discontinuation of medication usage. Their responsibilities further include bringing their medications (bottles from the pharmacy with residual pills) to the visit for possible confirmation of pill counts and the patient understands it is their responsibility to submit to random drug screens to ensure both that the medications prescribed are present, and that no other controlled substances are present. All prescriptions provided today were generated electronically. <ELECTRONICALLY SIGNED> By: Manuelito Ascencio DO 08/31/17 1417 [id number] Manuelito Ascencio DO /nt
[2017-08-29 11:20] VITALS: BP 111/68
== END ==
LOC: PAIN 07:04
DX: M54.16 Radiculopathy, lumbar region (principal); F31.9 Bipolar disorder, unspecified; Z98.890 Other specified postprocedural states; Z79.899 Other long term (current) drug therapy

== ENCOUNTER → 2017-09-08 | Outpatient (CLI) | payer OTHER ==
[~2017-09-08] VITALS: Ht 170.2 cm; Wt 107.0 kg
--- NOTE | ~2017-09-08 | HPC ---
[facility] [place] [address] PAIN MANAGEMENT CONSULTATION Name: RUPA NELSON Room #: REG [facility] Ngoc.#: [id number] Admission: 09/08/17 Attend Phys: Manuelito Ascencio DO Discharge: Date of : 54 Report #: [id number] THIS REPORT FOR: //name// CC: [facility] physician/PCP Manuelito Ascencio HISTORY OF PRESENT ILLNESS: The patient is a 66-year-old female last seen in pain clinic 08/29/2017. The patient with lumbar radiculopathy status post decompressive laminectomy, ongoing right hip pain, right groin pain, history of piriformis syndrome. Has a spinal cord stimulator in place. Last seen in the pain clinic 08/29/2017. We had referred the patient to Dr. Bon Garzon for consideration for further surgical intervention. I ordered a CT myelogram on 08/10/2017. This was accomplished. Reviewed this with the patient today. Posterior fusion at L4-L5, little narrowing at the neural foramen at this level, but no other dramatic findings were noted. Per Dr. Garzon's office, really, no surgical intervention was required at this time. The patient notes, however, her pain continues to be 5 on VAS. Pain is in the right hip. She has had 6 falls in the last 6 months due to weakness in that right leg. PHYSICAL EXAMINATION: GENERAL: Today does show 66-year-old female, BMI is elevated 37 kilograms per meter squared. NEUROLOGICAL: Somewhat flat affect. She is on multiple central acting agents for psychiatric comorbidities. VITAL SIGNS: Blood pressure 150/88, pulse 75 and respirations 16. MUSCULOSKELETAL: Has pain with active and passive rotation of the hip and pain over the palpation of the trochanteric bursa. I have done both trochanteric bursa injection and hip joint injection. Trochanteric bursa injected on 02/25/2017 with nominal efficacy. Right hip injection under fluoroscopy on 04/22/2017 with nominal efficacy. ASSESSMENT: Symptomatic degenerative joint disease, right hip. RECOMMENDATION: We will give the x-ray of that right hip today. Continue current medication unchanged including Percocet 7.5/325, no need to renew her prescription. We will continue gabapentin 800 mg typically 1 in the morning, 1 at noon, 1/2 at night. I did take the liberty for renewing 315 tablets (90-day prescription). We will see the patient back after x-rays of [place] [address] PAIN MANAGEMENT CONSULTATION Name: RUPA NELSON MONTY Room #: REG CL[facility] Kennedy#: [id number] Admission: 09/08/17 Attend Phys: Manuelito Ascencio DO Discharge: Date of : 54 Report #: [id number] refer to surgery if indicated. If she simply has modest DJD, this may be simply ongoing pain that the patient has to manage. <ELECTRONICALLY SIGNED> By: Manuelito Ascencio DO 09/09/17 0845 1705 0300 Manuelito Ascencio DO /siva
[2017-09-08 12:57] VITALS: BP 150/88
== END ==
LOC: PAIN 07:14
DX: M16.11 Unilateral primary osteoarthritis, right hip (principal)

== ENCOUNTER → 2017-12-05 | Outpatient (CLI) | payer OTHER ==
[~2017-12-05] VITALS: Ht 167.6 cm; Wt 106.6 kg
[~2017-12-05] MED LIST changes: -ASPIRIN325 PO; -FLORINEF ACETA0.1 MG PO; -XIIDRA1 EACH
--- NOTE | ~2017-12-05 | HPC ---
[facility] [place] [address] PAIN MANAGEMENT CONSULTATION Name: RUPA NELSON Room #: REG [facility] Ngoc.#: [id number] Admission: 12/05/17 Attend Phys: Manuelito Ascencio DO Discharge: Date of : 54 Report #: [id number] THIS REPORT FOR: //name// CC: [facility] physician/PCP Manuelito Ascencio DATE OF SERVICE: 12/05/2017 HISTORY OF PRESENT ILLNESS: The patient is a 67-year-old female, prior seen in the pain clinic back in August, symptomatic lumbar radiculopathy, status post decompressive laminectomy, is component of right hip pain. I did get x-rays of the right hip, 09/08/2017. Reviewed this with the patient. She has mild osteophyte formation on the labral acetabulum. This is fairly nominal. In the interval since we saw her, she did have a left total knee arthroplasty on 10/31/2017 and is doing well. Still has some ongoing hip pain. Dr. Landry thinks that she may have a component of L2 radiculopathy. Physical exam does show tenderness across the low back, pain going into the left hip and groin. Decreased left hip flexion and lower extremity extension strength. We reviewed the fact that opiate medications are being used to provide analgesia adequate to support activities of daily living, not attempting to achieve a specific pain score on the 0-10 Visual Analog Scale. The current opiate medications are providing sufficient analgesia to allow the patient to participate in activities of daily living. The patient is not exhibiting any aberrant behavior suggestive of drug diversion. The patient is not having any adverse reactions to medications. The patient is not suffering from daytime somnolence or mental acuity changes. The patient is managing opiate-induced constipation with appropriate xice-wcx-kruyufc agents and dietary considerations. The patient was counseled on concern for caution with operating a motor vehicle while using opiate medications. A physical exam was performed and the patient's functional status was evaluated. All patients with back pain were advised against the bed rest greater than 4 days and were advised to return to normal activities. Pain score assessment was noted and the treatment plan was reviewed with the patient. All current medications, both prescribed and OTC were reviewed and reconciled on the electronic medical record. Tobacco screening was accomplished and smoking cessation was advised when indicated. BMI was noted and diet/exercise modification was recommended for all patients following outside normal parameters. I reviewed with the patient today their responsibilities to safeguard prescription medications, reviewed their responsibility to utilize medications only as prescribed by the physician. They are to seek and receive pain [address] [address] PAIN MANAGEMENT CONSULTATION Name: KOSTACOLTRUPA JORDAN MONTY Room #: REG [place] Kennedy#: [id number] Admission: 12/05/17 Attend Phys: Manuelito Ascencio DO Discharge: Date of : 54 Report #: [id number] medications only from 1 physician group ( [facility]). They are to use 1 pharmacy and keep the clinic informed if they change pharmacies. Their responsibilities include making followup visits in a timely fashion and to avoid abrupt discontinuation of medication usage. Their responsibilities further include bringing their medications (bottles from the pharmacy with residual pills) to the visit for possible confirmation of pill counts and the patient understands it is their responsibility to submit to random drug screens to ensure both that the medications prescribed are present, and that no other controlled substances are present. All prescriptions provided today were generated electronically. ASSESSMENT: Lumbar radiculopathy, status post decompressive laminectomy (with fusion L4-L5), ongoing chronic pain requiring complex medication management and a relatively new right groin pain in L2 distribution. RECOMMENDATION: Lumbar epidural injection under fluoroscopy today at L2-L3. We will continue Percocet, but decreased from 7.5 to a 5/325, decreased from 120 to 100 tablets; directions to take 1 tablet 4 times a day, wean to 3 a day and then to b.i.d. Follow up in 4 weeks to evaluate efficacy of interventional therapy and medication management. PROCEDURE: Lumbar epidural injection under fluoroscopy. PROCEDURE NOTE: After both written and informed consent to include risk of spinal cord damage, increased pain, weakness and dural puncture, the patient was taken to the fluoroscopy suite, placed in the prone position. After sterile prep and drape, a skin wheal with lidocaine was raised. A 22-gauge epidural Tuohy needle was inserted in the midline at L2-L3 with good loss to resistance. Negative aspiration for cerebrospinal fluid or blood was noted. Then 1 mL of Omnipaque under biplanar fluoroscopy showed good spread within the epidural space. This was followed with 80 mg of triamcinolone plus 1 mL of 1.5% preservative-free Xylocaine, 0.5 mL Xylocaine was then injected to flush the needle; it was removed. The patient was monitored for an appropriate period of time and discharged in good and stable condition. By: [id number] Manuelito Ascencio DO /nt
[2017-12-05 09:25] VITALS: BP 107/67
== END | disposition home or self-care (01) ==
LOC: PAIN 07:06
DX: M54.16 Radiculopathy, lumbar region (principal); G89.29 Other chronic pain; R10.31 Right lower quadrant pain; Z98.890 Other specified postprocedural states; Z79.891 Long term (current) use of opiate analgesic; Z88.8 Allergy status to other drugs, medicaments and biological substances; Z96.652 Presence of left artificial knee joint; Z87.891 Personal history of nicotine dependence

== ENCOUNTER → 2018-01-05 | Outpatient (CLI) | payer OTHER ==
[~2018-01-05] VITALS: Ht 170.2 cm; Wt 103.2 kg
[~2018-01-05] MED LIST changes: +ASPIRIN325 PO; +FLORINEF ACETA0.1 MG PO; +XIIDRA1 EACH
--- NOTE | ~2018-01-05 | HPC ---
[facility] [address] [address] [place] [address] PAIN MANAGEMENT CONSULTATION Name: RUPA NELSON Room #: REG [facility] Ngoc.#: [id number] Admission: 01/05/18 Attend Phys: Manuelito Ascencio DO Discharge: Date of : 54 Report #: [id number] THIS REPORT FOR: //name// CC: [facility] physician/PCP Manuelito Ascencio The patient is a 67-year-old female, being treated for chronic axial back pain, lumbar radiculopathy, status post decompressive laminectomy, component of right hip pain requiring complex medication management. Last visit was 12/05/2017. We spent a great deal of time talking about weaning opiate analgesics. The patient was desirous of weaning opiate analgesics. We rotated from Percocet 7.5/325-11/5324 product. She has been taking up to 4 tablets a day and has gradually weaned down to average of 2 a day. Actually last month, she has used 63 Percocet 5/325 tablets. Started the month taking 3-4 tablets a day and over the last 7-10 days, she has been using 1 a day. The patient was applauded on her efforts to continue weaning opiate analgesics. She does take aspirin 325 mg 2-3 tablets 3 times a day. Total of this is approaching the therapeutic ceiling of this agent (recommended 3 grams/d in divided doses). I cautioned the patient about gastroesophageal irritation and bleeding including hematemesis and/or hematochezia/melenic stools. I informed patient about renal dysfunction with aspirin use as well. 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 To her credit, she has been exercising, she [facility] an [facility] 30 minutes that she is trying to do 5/7 days. Last epidural injection afforded excellent relief for 5 days, pain has gradually begun to recur overall. She had no change in her hip pain, however. She rates her subjective pain score today 3 on a VAS. Pain is primarily in the low back, radiating down the right buttock and leg with some chronic left knee pain. PHYSICAL EXAMINATION: VITAL SIGNS: Shows 67-year-old female, BMI is 35.6 kilograms per meter squared. Vital signs are stable as noted on the EMR. NEUROLOGIC: Cranial nerves 2-12 are grossly intact. HEENT: Pupils equal, react to light and accommodation. Extraocular muscles are intact. MUSCULOSKELETAL: She rises from chair using armrest, modestly antalgic gait, diffuse tenderness across the low back, pain radiating in the right buttock and leg. Positive straight leg raise on the right. Does have a little bit of pain with hip rotation, though this is on the right. We reviewed the fact that opiate medications are being used to provide analgesia adequate to support activities of daily living, not attempting to achieve a specific pain score on the 0-10 Visual Analog Scale. The current opiate [address] [address] PAIN MANAGEMENT CONSULTATION Name: RUPA NELSON Room #: REG [place] Kennedy#: [id number] Admission: 01/05/18 Attend Phys: Manuelito Ascencio DO Discharge: Date of : 54 Report #: [id number] medications are providing sufficient analgesia to allow the patient to participate in activities of daily living. The patient is not exhibiting any aberrant behavior suggestive of drug diversion. The patient is not having any adverse reactions to medications. The patient is not suffering from daytime somnolence or mental acuity changes. The patient is managing opiate-induced constipation with appropriate dtyt-ogx-xzwveru agents and dietary considerations. The patient was counseled on concern for caution with operating a motor vehicle while using opiate medications. A physical exam was performed and the patient's functional status was evaluated. All patients with back pain were advised against the bed rest greater than 4 days and were advised to return to normal activities. Pain score assessment was noted and the treatment plan was reviewed with the patient. All current medications, both prescribed and OTC were reviewed and reconciled on the electronic medical record. Tobacco screening was accomplished and smoking cessation was advised when indicated. BMI was noted and diet/exercise modification was recommended for all patients following outside normal parameters. I reviewed with the patient today their responsibilities to safeguard prescription medications, reviewed their responsibility to utilize medications only as prescribed by the physician. They are to seek and receive pain medications only from 1 physician group ( [facility]). They are to use 1 pharmacy and keep the clinic informed if they change pharmacies. Their responsibilities include making followup visits in a timely fashion and to avoid abrupt discontinuation of medication usage. Their responsibilities further include bringing their medications (bottles from the pharmacy with residual pills) to the visit for possible confirmation of pill counts and the patient understands it is their responsibility to submit to random drug screens to ensure both that the medications prescribed are present, and that no other controlled substances are present. All prescriptions provided today were generated electronically. ASSESSMENT: Status post decompressive laminectomy, right hip pain, status post left total knee arthroplasty (left knee osteoarthritis.), requiring complex medication management. PLAN: The patient was congratulated on her efforts to wean opiate analgesics, was applauded on her exercise efforts. I did take the liberty of writing for Percocet 5/325 prescription for 45 tablets to release in 4 days. She is typically taking one a day. She is trying to wean down to simply 1 tablet on a nondaily basis. Will have her follow up with her Primary Provider to follow up with general health issues as well as to follow up on mod-high dose ASA use. ASSESSMENT #2: Acute lumbar radiculopathy. [facility] [address] [place] [address] PAIN MANAGEMENT CONSULTATION Name: RUPA NELSON Room #: REG [facility] Ngoc.#: [id number] Admission: 01/05/18 Attend Phys: Manuelito Ascencio DO Discharge: Date of : 54 Report #: [id number] PLAN: We will move forward with epidural injection under fluoroscopy today for the acute exacerbation of radicular pain component. PROCEDURE: Lumbar epidural injection under fluoroscopy. PROCEDURE NOTE: After both written and informed consent to include risk of spinal cord damage, increased pain, weakness and dural puncture, the patient was taken to the fluoroscopy suite, placed in the prone position. After sterile prep and drape, a skin wheal with lidocaine was raised. A 22-gauge epidural Tuohy needle was inserted in the midline at L5-S1 with good loss to resistance. Negative aspiration for cerebrospinal fluid or blood was noted. Then 1 mL of Omnipaque under biplanar fluoroscopy showed good spread within the epidural space. This was followed with 80 mg of triamcinolone plus 1 mL of 1.5% preservative-free Xylocaine, 0.5 mL Xylocaine was then injected to flush the needle; it was removed. The patient was monitored for an appropriate period of time and discharged in good and stable condition. <ELECTRONICALLY SIGNED> By: Manuelito Ascencio DO 01/05/18 1249 [id number] Manuelito Ascencio DO /nt
[2018-01-05 09:23] VITALS: BP 120/80
== END ==
LOC: PAIN 06:45
DX: M54.16 Radiculopathy, lumbar region (principal); Z98.890 Other specified postprocedural states; Z87.891 Personal history of nicotine dependence

== ENCOUNTER → 2018-03-14 | Outpatient (CLI) | payer OTHER ==
[~2018-03-14] VITALS: Ht 170.2 cm; Wt 104.2 kg
--- NOTE | ~2018-03-14 | HPC ---
[facility] [address] [place] [address] PAIN MANAGEMENT CONSULTATION Name: RUPA NELSON Room #: REG [place] aMrcia#: [id number] Admission: 03/14/18 Attend Phys: Karan Ascencio DO Discharge: Date of : 54 Report #: [id number] THIS REPORT FOR: //name// CC: [facility] physician/PCP Karan Hyde MD DATE OF SERVICE: 03/14/2018 REFERRING PHYSICIAN: Oc Hyde M.D. CHIEF COMPLAINT: Low back pain and right lower extremity pain with paresthesias. HISTORY OF PRESENT ILLNESS: As you know, the patient is a morbidly obese 67-year-old female with longstanding history of low back pain and right lower extremity pain with paresthesias. The patient has been referred back to our clinic to trial epidural injection under fluoroscopic guidance. She has been advised that her symptoms are likely due to foraminal stenosis at the L5-S1 level, though surgical options at this point are not considered. She returns per the request of her neurosurgeon to undergo epidural injection under fluoroscopic guidance. The patient reports that the previous epidural injection, she received approximately 50% improvement lasting for nearly 2 weeks. She returns to undergo next in the series in hopes of seeing improvement in pain and for a more prolonged period of time. She indicates today pain is a 4/10, states pain is exacerbated with sitting and walking, improves with spinal cord stimulator and medications. She returns per the request of her neurosurgeon to undergo epidural injection under fluoroscopic guidance. ALLERGIES: CODEINE. CURRENT MEDICATIONS: Percocet 5/325 one tab every 8 hours p.r.n. for pain, aspirin 325 mg per day, Florinef 0.1 mg tablet 3 times a day, gabapentin 800 mg 3 times a day, Amitiza 24 mcg once a day, calcitriol 0.5 mcg 3 times a day, calcium carbonate 1 tab per day, metaxalone 800 mg 3 times a day, diclofenac gel apply topically 4 times a day, hydralazine 10 mg once a day, estradiol 1 tab per day, mirtazapine 15 mg p.o. at bedtime, clonazepam 0.5 mg 2 tabs p.o. at bedtime, bupropion 150 mg per day, cholecalciferol 2000 units per day, levothyroxine 100 mcg per day, olanzapine 20 mg once a day, potassium chloride 20 mEq p.o. every day, ascorbic acid 500 mg twice a day, ondansetron 4 mg p.r.n., Restasis one drop each eye per day, multivitamin 1 tab per day and Dexilant 60 mg twice a day. SOCIAL HISTORY: The patient denies tobacco use. Denies IV or illicit drug use. [place] [address] PAIN MANAGEMENT CONSULTATION Name: RUPA NELSON Room #: REG [place] Kennedy#: [id number] Admission: 03/14/18 Attend Phys: Karan Ascencio DO Discharge: Date of : 54 Report #: [id number] IMAGING DATA: No new imaging available. PQRS: The patient has osteoarthritis of the low back, bilateral hips. She is not suffering from rheumatoid arthritis. She is not a fall risk and has not had a fall in the last 3 months. She is treated for hypothyroidism, but is not treated for hypertension. She is not on any blood thinners. She is placing current pain impact score at 65/70 near complete interference of daily activities secondary to pain. PHYSICAL EXAMINATION: VITAL SIGNS: Blood pressure 124/83, pulse 78 and respiratory rate 16 and unlabored. The patient is 97% on room air. Height 5 feet 7 inches tall, weight 229.8 pounds and BMI calculated 36. GENERAL: Well-developed, well-nourished and well-hydrated exogenously obese 67-year-old female appearing stated age, placing current pain score at 4/10. HEENT: Normocephalic and atraumatic. Pupils equal, round and reactive to light. Extraocular muscles are intact. EXTREMITIES: Show no clubbing, no cyanosis and no edema. MUSCULOSKELETAL: Lower extremity strength equal and symmetrical 5/5. She is intact to light touch from L1 through S2 dermatomes. Seated straight leg raising negative. Supine straight leg raising positive on the right. Rubi's test negative. ASSESSMENT: 1. Chronic lumbar radiculopathy. 2. Lumbosacral spondylosis with radiculopathy. 3. Foraminal stenosis of the lumbar spine. 4. Facet arthropathy of the lumbar region. 5. Chronic intractable pain. PLAN: 1. The patient has returned today in followup visit requesting to undergo lumbar epidural injection under fluoroscopic guidance. The patient has noticed excellent benefit with previous epidural injections. She has requested and we will perform the injection today. Unfortunately, the past, epidural injections have only given 2 to possibly 3 weeks' worth of pain improvement. She has been referred back to our clinic to trial one more epidural injection. If this is ineffective, surgical options may be necessary. The patient returns to undergo this procedure today. I have advised the patient of the risks and the benefits of a lumbar epidural injection. These risks include but are not necessarily limited to bleeding, bruising, infection, worsening pain, no relief of pain, also risk of temporary or permanent muscle weakness, temporary or permanent nerve damage, possible paralysis and . The patient states understood and wished to proceed. 2. No medication changes made at today's visit. The patient will continue current medical therapy as previously prescribed. [address] [address] PAIN MANAGEMENT CONSULTATION Name: RUPA NELSON Room #: REG [facility] Ngoc.#: [id number] Admission: 03/14/18 Attend Phys: Karan Ascencio DO Discharge: Date of : 54 Report #: [id number] 3. We will see the patient back in followup visit on an as needed basis for the next in the series of epidural injections if she receives good and prolonged benefit with this injection today PROCEDURE NOTE DESCRIPTION OF PROCEDURE: L5-S1 right paramedian epidural steroid injection under fluoroscopic guidance. After obtaining written consent, the patient was taken back to fluoroscopy suite, placed in prone position with pillow under abdomen to decrease lumbar lordosis. Skin overlying lumbosacral area then prepped and draped in aseptic fashion. L5-S1 vertebral interspace identified by AP fluoroscopy. Skin and subcutaneous tissue overlying target site of injection was anesthetized with 3 mL of 1% lidocaine. A 20-gauge 3-1/2 inch Tuohy needle advanced under fluoroscopic guidance towards the epidural space using right paramedian approach. Epidural space identified using loss of resistance to air technique. After negative aspiration for heme or cerebrospinal fluid, 1 mL of Omnipaque injected. A lumbar epidurogram confirmed using both AP and lateral fluoroscopy. After negative aspiration for heme or cerebrospinal fluid, 5 mL of a solution containing 2 mL 40 mg per mL, 80 mg total triamcinolone and 3 mL of preservative free sterile sodium chloride was provided. Needle was retracted approximately half way, flushed with 1 mL of 1% lidocaine and removed. Sterile bandage placed over injection site. No new motor deficits present in lower extremity following procedure. The patient tolerated the procedure well, carefully escorted to recovery room in stable condition. No apparent complication. After meeting discharge criteria, the patient discharged home. <ELECTRONICALLY SIGNED> By: Karan Ascencio DO 03/16/18 0817 1221 [id number] Karan Ascencio DO /nt
[2018-03-14 10:23] VITALS: BP 124/83
== END | disposition home or self-care (01) ==
LOC: PAIN 06:58
DX: M47.27 Other spondylosis with radiculopathy, lumbosacral region (principal); G89.29 Other chronic pain; M48.061 Spinal stenosis, lumbar region without neurogenic claudication; M46.96 Unspecified inflammatory spondylopathy, lumbar region; M16.0 Bilateral primary osteoarthritis of hip; E03.9 Hypothyroidism, unspecified; Z79.899 Other long term (current) drug therapy; Z88.6 Allergy status to analgesic agent; Z79.82 Long term (current) use of aspirin; Z87.891 Personal history of nicotine dependence

== ENCOUNTER → 2018-07-12 | Outpatient (CLI) | payer OTHER ==
[~2018-07-12] VITALS: Ht 170.2 cm; Wt 111.6 kg
[~2018-07-12] MED LIST changes: +METAXALL800 MG PO
--- NOTE | ~2018-07-12 | HPC ---
[facility] [address] [address] PAIN MANAGEMENT CONSULTATION Name: RUPA NELSON Room #: REG [facility] M.Lobito.#: [id number] Admission: 07/12/18 Attend Phys: Vee Jasso Discharge: Date of : 54 Report #: [id number] THIS REPORT FOR: //name// CC: Vee Jasso [address] DATE OF SERVICE: 07/12/2018 CHIEF COMPLAINT: Low back pain, right lower extremity pain with paresthesias. HISTORY OF PRESENT ILLNESS: This is a morbidly obese 67-year-old female with a longstanding history of low back pain and right lower extremity pain with paresthesias. She returns to the pain clinic today for a refill of her medications. The patient tells me that she had tried to decrease her gabapentin, but she was taking 800 mg 3 times a day, thought that maybe it was not helping her with her pain control. She had decreased it. Her pain did return. The patient was wondering if maybe she should have increased her oxycodone. That before she came to see us, she has already increased her gabapentin back to her normal day's dose and noticed that her pain had decreased again. The patient tells me she is scheduled for a myelogram on Tuesday of her hip-pelvic floor by Dr. Landry and then has a followup visit with Dr. Landry in July. She is rating her pain today as a 5/10, worse when she is walking and driving. She does have a spinal cord stimulator that she uses all the time that helps with her pain control as well as her medications when she is taking them as prescribed. Her pain today is located in her low back and right buttock mostly. She denies any constipation or daytime sleepiness. ALLERGIES: CODEINE. MEDICATIONS: Oxycodone 7.5/325 3-4 times a day; Skelaxin 800 mg 3 times a day; Neurontin 800 mg 1 in the morning, 1 at noon and 1.5 at night; diclofenac gel to back, shoulder and neck twice a day and then see list of her medications that have been reconciled. PQRS TODAY: She has osteoarthritis in her lower back and hips. Denies rheumatoid arthritis. Height is 5 feet 7 inches, weight is 246, BMI is 38.5. Vital signs: Blood pressure 117/71, pulse is 72, respirations 16, oxygen sat is 94. Pain score is 5/10. Fall risk, she denies dizziness. Does not need help walking or standing, has not fallen in the last 3 months. The patient is not on any blood thinners, but does take antihypertensive medications. Her opioid therapy is greater than 6 weeks, therefore, an opioid signed contract is on the chart. Her risk assessment tool is high and her functional assessment is 30/70. The patient denies recreational drug use, is a former smoker and does not drink alcohol. We did check the prescription monitoring system. The patient seems to be filling appropriately from Dr. Albert in our clinic and is due today for her medication refills. There is a drug screen on the chart and we will repeat that [address] [address] PAIN MANAGEMENT CONSULTATION Name: RUPA NELSON Room #: REG CLVida Kennedy#: [id number] Admission: 07/12/18 Attend Phys: Vee Jasso Discharge: Date of : 54 Report #: [id number] again at her next visit, which will be in yearly increments. PHYSICAL EXAMINATION: GENERAL: This is a well-developed, well-nourished, well-hydrated, morbidly obese 67-year-old. She appears her stated age. Her affect is appropriate. Placing her pain score at 5/10 today. HEENT: Normocephalic, atraumatic. Pupils equal, round, reactive to light. Extraocular muscles are intact. EXTREMITIES: No clubbing, no cyanosis, no edema. MUSCULOSKELETAL: Lower extremity strength judged to be 5/5 and symmetrical. Muscle, bulk and tone equal and symmetrical. The patient does walk with an antalgic gait. ASSESSMENT: 1. Lumbar radiculopathy. 2. Lumbosacral spondylosis with radiculopathy. 3. Foraminal stenosis of lumbar spine. 4. Facet arthropathy of the lumbar spine. 5. Chronic intractable pain. We reviewed the fact that opiate medications are being used to provide analgesia adequate to support activities of daily living, not attempting to achieve a specific pain score on the 0-10 Visual Analog Scale. The current opiate medications are providing sufficient analgesia to allow the patient to participate in activities of daily living. The patient is not exhibiting any aberrant behavior suggestive of drug diversion. The patient is not having any adverse reactions to medications. The patient is not suffering from daytime somnolence or mental acuity changes. The patient is managing opiate-induced constipation with appropriate fhtr-zce-qarhzqj agents and dietary considerations. The patient was counseled on concern for caution with operating a motor vehicle while using opiate medications. A physical exam was performed and the patient's functional status was evaluated. All patients with back pain were advised against the bed rest greater than 4 days and were advised to return to normal activities. Pain score assessment was noted and the treatment plan was reviewed with the patient. All current medications, both prescribed and OTC were reviewed and reconciled on the electronic medical record. Tobacco screening was accomplished and smoking cessation was advised when indicated. BMI was noted and diet/exercise modification was recommended for all patients following outside normal parameters. I reviewed with the patient today their responsibilities to safeguard prescription medications, reviewed their responsibility to utilize medications only as prescribed by the physician. They are to seek and receive pain medications only from 1 physician group ([facility]). They are to use 1 [facility] [address] [place] [address] PAIN MANAGEMENT CONSULTATION Name: RUPA NELSON Room #: REG CLVida Kennedy#: [id number] Admission: 07/12/18 Attend Phys: Vee Jasso Discharge: Date of : 54 Report #: [id number] pharmacy and keep the clinic informed if they change pharmacies. Their responsibilities include making followup visits in a timely fashion and to avoid abrupt discontinuation of medication usage. Their responsibilities further include bringing their medications (bottles from the pharmacy with residual pills) to the visit for possible confirmation of pill counts and the patient understands it is their responsibility to submit to random drug screens to ensure both that the medications prescribed are present, and that no other controlled substances are present. All prescriptions provided today were generated electronically. PLAN: 1. The patient returns to follow up visit today to discuss treatment plans for her medication refills. The patient tells me that she did decrease her gabapentin thinking that it was not really helpful. Her pain had returned, then she felt that she should increase her Percocet use. She tells me that she had been taking sometimes 4 pills a day. I reiterated that she needs to stay on her gabapentin as prescribed and she is allowed 3-4 tablets a day, 100 tablets of her Percocet a month. The patient tells me that when she increased her gabapentin back to her scheduled prescription, that her pain did decrease. She will continue at the current dose. No scripts for gabapentin will be given today since she has plenty plus refills at home. 2. Script was given for Percocet 7.5/325, #100. The patient to take 3-4 times a day for today, 4-week and 8-week release and Skelaxin 800 mg 3 times a day, #90 with 2 additional refills. The patient does not need diclofenac refilled today since she has plenty at home that she uses it sparingly. 3. Encouraged the patient to be as active as possible. She tells me that she does not exercise. I encouraged her to at least stretch and be as active as possible, that does help reduce some of her pain by being active, reminding her that body likes motion and it does not like it when she is just sitting in the chair. The patient tells me that she will try and be active when the weather is nice outside and try to exercise stretching inside. The patient will be seen in 3-months' time period. The patient's care given today in collaboration with Dr. Karan Ascencio. <ELECTRONICALLY SIGNED> By: Vee Jasso 07/13/18 0842 [id number] Vee Jasso /siva
[2018-07-12 09:18] VITALS: BP 117/71
== END ==
LOC: PAIN 08:57
DX: M47.27 Other spondylosis with radiculopathy, lumbosacral region (principal); M48.061 Spinal stenosis, lumbar region without neurogenic claudication; G89.4 Chronic pain syndrome

== ENCOUNTER → 2018-10-04 | Outpatient (CLI) | payer OTHER ==
[~2018-10-04] MED LIST changes: +ESCITALOPRAM OX20 MG PO; +KLOR-CON M1010 MEQ PO; +LIDOCAINE1 EACH TRANSDERM
== END ==
LOC: RAD 11:36
DX: M25.552 Pain in left hip (principal); M25.551 Pain in right hip; M54.10 Radiculopathy, site unspecified

== ENCOUNTER → 2018-10-04 | Outpatient (CLI) | payer OTHER ==
[~2018-10-04] VITALS: Ht 170.2 cm; Wt 113.4 kg
[~2018-10-04] MED LIST changes: -KLOR-CON M1010 MEQ PO
[2018-10-04 11:04] VITALS: BP 112/76
--- NOTE | 2018-10-04 11:05 | NUR ---
Pain Clinic Assessment: 1. History of Osteoarthritis: SPINE JOINTS History of Rheumatoid Arthritis: hands 2. Height: 5 ft. 7 in. 170.2 cm. Weight: 250.0 lb. oz. 113.400 kg. Patient's BMI: 39.1 3. Vital Signs: BP: 112/76 Pulse: 73 Resp: 16 Temp: 02 Sat: 93 ECG Mon: 4. Pain Intensity: 7 5. Fall Risk: Dizziness: N Needs help standing or walking: N Fallen in the last 3 months: N Fall risk comments: 6. Patient on Blood Thinner: None 7. History of Hypertension: Y 8. Opioid Therapy greater than 6 weeks: Y Opiate Contract Signed: 12/05/17 9. Risk Assessment Tool Provided: 6-mod 10. Functional Assessment Tool: 11. Recreational Drug Use: Never Drug Type: Tobacco Use: Former Smoker Tobacco Type: Amount or Packs/day: How Many Years: Alcohol Use: No Frequency: Quant:
--- NOTE | 2018-10-05 15:25 | HPC ---
[facility] [place] [address] PAIN MANAGEMENT CONSULTATION Name: RUPA NELSON Room #: REG [facility] M.Lobito.#: [id number] Admission: 10/04/18 ������������������ Attend Phys: Vee Jasso Discharge: ������������������ Date of : 54 Report #: [id number] THIS REPORT FOR: //name// CC: Vee Hyde DATE OF SERVICE: 10/04/2018 CHIEF COMPLAINT: Low back pain, right lower extremity pain and bilateral hip pain. HISTORY OF PRESENT ILLNESS: This is a morbidly obese 67-year-old female who returns to the pain clinic today complaining of low back pain, right buttock pain and bilateral hip pain. She tells me that her right hip is hurting worse than her left. She is to go to x-ray today to get x-rays of both of her hips that Dr. Hyde had ordered. She tells me that she has achy, throbbing pain that her average pain score is about a 7. It is worse when she is walking and driving. She does have a spinal cord stimulator that she uses 24 hours a day 7 days a week. She tells me that her medications are very helpful in relieving her pain though she does have some constipation, but does take some medicines and she occasionally has some daytime sleepiness, but does not think it is associated with her medicines. The patient would like a refill of her narcotic medications today. ALLERGIES: CODEINE. CURRENT LIST OF MEDICATIONS: Percocet 7.5/325 two to three times a day, Lexapro 20 mg daily, lidocaine patch daily, Skelaxin 800 mg 3 times a day, gabapentin 800 mg 1 in the morning, 1 at noon, one and a half at night, diclofenac gel as needed, aspirin 325 mg daily, Florinef acetate daily, Amitiza 24 mcg daily, calcitriol 0.5 mcg daily, calcium with vitamin D 3 times a daily, vitamin B complex daily, hydralazine 10 mg daily, mirtazapine 15 mg at bedtime, clonazepam 0.5 mg 2 tablets at bedtime, vitamin D3 daily, bupropion 150 mg 3 times a day, temazepam 15 mg 1-2 at bedtime, Synthroid 0.1 mg daily, potassium 20 mEq 3 times a day, Dexilant 60 mg b.i.d., multivitamin daily, Flomax 0.4 mg daily and Restasis daily. PQRS: 1. The patient has a history of osteoarthritis in her lower back and her hip. She denies rheumatoid arthritis. 2. Height is 5 feet 7 inches, weight is 250 and BMI is 39.1. 3. Vital signs 112/76, pulse of 73, respirations 16 and oxygen sat is 93. 4. Pain score is 7/10. 5. Fall risk. She denies. She does not need help walking or standing and has not fallen in the last 3 months. 6. The patient is not on any blood thinners, [place] [address] PAIN MANAGEMENT CONSULTATION Name: RUPA NELSON Room #: REG [place] Kennedy#: [id number] Admission: 10/04/18 ������������������ Attend Phys: Vee Jasso Discharge: ������������������ Date of : 54 Report #: [id number] hypertension. 7. Opioid therapy is greater than 6 weeks; therefore, an opioid signed contract is on the chart. 8. Risk assessment tool is moderate. Her functional assessment is 46/70. 9. Recreational drug use, she denies. She is a former smoker and does not drink alcohol. We did check the prescription monitoring system. The patient is filling appropriately from her medicines from our doctors in the clinic. No aberrant behavior noted. We will check a buccal drug screen on her today and she tells me that she does safeguard her medications. PHYSICAL EXAMINATION: GENERAL: This is a well-developed, well-nourished, well-hydrated, morbidly obese 67-year-old. She appears her stated age. Her affect is appropriate placing her pain score today at 7/10. HEENT: Normocephalic and atraumatic. Extraocular eye muscles are intact. Mucous membranes are moist. EXTREMITIES: No clubbing, no cyanosis and no edema. MUSCULOSKELETAL: Lower extremity strength judged to be 5/5 symmetrical. Muscle bulk and tone is equal and symmetrical. The patient does walk with an antalgic gait. Does complain of some tenderness in her bilateral hips having more pain in the right than the left. ASSESSMENT: 1. Lumbar radiculopathy 2. Lumbosacral spondylosis with radiculopathy. 3. Foraminal stenosis of the lumbar spine. 4. Facet arthroscopy of the lumbar spine. 5. Chronic intractable pain. 6. Bilateral hip pain. We reviewed the fact that opiate medications are being used to provide analgesia adequate to support activities of daily living, not attempting to achieve a specific pain score on the 0-10 Visual Analog Scale. The current opiate medications are providing sufficient analgesia to allow the patient to participate in activities of daily living. The patient is not exhibiting any aberrant behavior suggestive of drug diversion. The patient is not having any adverse reactions to medications. The patient is not suffering from daytime somnolence or mental acuity changes. The patient is managing opiate-induced constipation with appropriate kyse-xme-wqznzon agents and dietary considerations. The patient was counseled on concern for caution with operating a motor vehicle while using opiate medications. A physical exam was performed and the patient's functional status was evaluated. All patients with back pain were advised against the bed rest greater than 4 [facility] [address] [place] [address] PAIN MANAGEMENT CONSULTATION Name: RUPA NELSON Room #: REG CL M.R.#: [id number] Admission: 10/04/18 ������������������ Attend Phys: Vee Jasso Discharge: ������������������ Date of : 54 Report #: [id number] days and were advised to return to normal activities. Pain score assessment was noted and the treatment plan was reviewed with the patient. All current medications, both prescribed and OTC were reviewed and reconciled on the electronic medical record. Tobacco screening was accomplished and smoking cessation was advised when indicated. BMI was noted and diet/exercise modification was recommended for all patients following outside normal parameters. I reviewed with the patient today their responsibilities to safeguard prescription medications, reviewed their responsibility to utilize medications only as prescribed by the physician. They are to seek and receive pain medications only from 1 physician group ( [facility]). They are to use 1 pharmacy and keep the clinic informed if they change pharmacies. Their responsibilities include making followup visits in a timely fashion and to avoid abrupt discontinuation of medication usage. Their responsibilities further include bringing their medications (bottles from the pharmacy with residual pills) to the visit for possible confirmation of pill counts and the patient understands it is their responsibility to submit to random drug screens to ensure both that the medications prescribed are present, and that no other controlled substances are present. All prescriptions provided today were generated electronically. PLAN: 1. We discussed treatment options with the patient today. The patient would like a refill of her Percocet. She feels that they are very beneficial for her. Script was given today for Percocet 7.5/325, quantity 100 for today release, 4-week and 8-week release. 2. Second medicine is Skelaxin 800 mg, #90 with 2 additional refills. The patient told to take this sparingly, not on the schedule. It is for muscle spasms as she needs them. 3. Voltaren gel was refilled with two additional refills. 4. The patient tells me that her spinal cord stimulator, she uses 24 hours a day and finding that she is needing to recharge it more frequently. When Dr. Ascencio was present during the visit, he encouraged her to have it checked with [employer] to see what the battery life is left on that. I also encouraged her to contact Dr. Landry to see when they think that she will need a replacement battery and to have an appointment with him. The patient verbalizes her understanding and will call [employer] to set up an appointment. 5. The patient will be seen in [address] Karan Ascencio collaborating care as well as saw the patient today. ��������������������������������������������� <ELECTRONICALLY SIGNED> ���������������������������������������� By: Vee Jasso ��������������������������������������������� 10/05/18 1525 [id number] Vee Jasso /siva
== END ==
LOC: PAIN 10-03 12:51
DX: M47.27 Other spondylosis with radiculopathy, lumbosacral region (principal); M48.062 Spinal stenosis, lumbar region with neurogenic claudication; G89.4 Chronic pain syndrome; M25.551 Pain in right hip; M25.552 Pain in left hip; Z79.899 Other long term (current) drug therapy

== ENCOUNTER → 2018-10-25 | Outpatient (CLI) | payer OTHER ==
[~2018-10-25] VITALS: Ht 170.2 cm; Wt 110.2 kg
[~2018-10-25] MED LIST changes: +KLOR-CON M1010 MEQ PO
[2018-10-25 09:16] VITALS: BP 127/82
--- NOTE | 2018-10-25 09:18 | NUR ---
Pain Clinic Assessment: 1. History of Osteoarthritis: SPINE JOINTS History of Rheumatoid Arthritis: hands 2. Height: 5 ft. 7 in. 170.2 cm. Weight: 243.0 lb. oz. 110.224 kg. Patient's BMI: 38.1 3. Vital Signs: BP: 127/82 Pulse: 70 Resp: 16 Temp: 02 Sat: 96 ECG Mon: 4. Pain Intensity: 6 5. Fall Risk: Dizziness: N Needs help standing or walking: N Fallen in the last 3 months: N Fall risk comments: 6. Patient on Blood Thinner: None 7. History of Hypertension: Y 8. Opioid Therapy greater than 6 weeks: Y Opiate Contract Signed: 12/05/17 9. Risk Assessment Tool Provided: 6-mod 10. Functional Assessment Tool: 11. Recreational Drug Use: Never Drug Type: Tobacco Use: Former Smoker Tobacco Type: Amount or Packs/day: How Many Years: Alcohol Use: No Frequency: Quant:
--- NOTE | 2018-10-26 09:08 | HPC ---
[facility] [address] PAIN MANAGEMENT CONSULTATION Name: RUPA NELSON Room #: REG [facility] M.R.#: [id number] Admission: 10/25/18 ������������������ Attend Phys: Vee Jasso Discharge: ������������������ Date of : 54 Report #: [id number] THIS REPORT FOR: //name// CC: Vee Jasso [address] DATE OF SERVICE: 10/25/2018 CHIEF COMPLAINT: Chronic low back pain, right lower extremity pain and hip pain. HISTORY OF PRESENT ILLNESS: This is a very pleasant 67-year-old female who returns to the pain clinic today for refill of her gabapentin. She tells me that she was denied refills by our office. I have no record or indication of this, but she was here about 2 weeks ago and received all the rest of her medications. At that time, she did not need her gabapentin since, per our records, she had a year's supply of that from March. The patient tells me that [facility] has told her she has no refills, so she does take 800 mg 3 times a day with an additional 400 at bedtime. She tells me that her pain score today is 6/10, mostly again in her low back and right buttocks. Driving and walking makes it worse, but she does think that her medications and her spinal cord stimulator are very helpful in controlling her pain. She would just like a refill of her gabapentin today. ALLERGIES: CODEINE. CURRENT LIST OF MEDICATIONS: Potassium 10 mEq daily, Neurontin 800 mg 3 times a day and 400 additional at bedtime, Voltaren gel as needed, Skelaxin 800 mg 3 times a day, oxycodone 7.5 three times a day, and please see the rest of that list from the medical records. PQRS: 1. The patient has a history of arthritis in her lower back and her hips. She denies any rheumatoid arthritis. 2. Height is 5 feet 7 inches, weight is 243, BMI is 38. Vital signs, blood pressure 127/82, pulse is 70, respirations 16, oxygen sat 96%. 3. Pain score is 6/10. 4. Fall risk. Denies dizziness. Does not need help walking or standing. Has not fallen in the last 3 months. 5. The patient is not on any blood thinners, but does take medicine for hypertension. 6. Opiate therapy is greater than 6 weeks; therefore, an on opioid signed contract is on the chart. 7. Risk assessment tool is moderate. Her functional assessment is 46/70. 8. Recreational drug use, she denies. She is a former smoker and does not drink alcohol. [address] [address] PAIN MANAGEMENT CONSULTATION Name: RUPA NELSON Room #: REG [facility]#: [id number] Admission: 10/25/18 ������������������ Attend Phys: Vee Jasso Discharge: ������������������ Date of : 54 Report #: [id number] We did check the prescription monitoring system. The patient is filling appropriately from Dr. Karan Ascencio. We did check a random drug screen on her in September and the results have come back that they are appropriate with the medications that she is taking. She tells me she safeguards her medicines at all times. PHYSICAL EXAMINATION: GENERAL: This is a well-developed, well-nourished, well-hydrated, morbidly obese 67-year-old female who appears her stated age. HEENT: Normocephalic, atraumatic. Extraocular eye muscles are intact. Mucous membranes are moist. EXTREMITIES: No clubbing, no cyanosis, no edema noted. MUSCULOSKELETAL: Lower extremity strength judged to be 5/5. Muscle tone and bulk are equal and symmetrical. The patient walks with an antalgic gait. ASSESSMENT: 1. Lumbar radiculopathy, lumbosacral spondylosis with radiculopathy. 2. Foraminal stenosis of lumbar spine. 3. Facet arthroscopy of lumbar spine. 4. Chronic intractable pain. 5. Bilateral hip pain. We reviewed the fact that opiate medications are being used to provide analgesia adequate to support activities of daily living, not attempting to achieve a specific pain score on the 0-10 Visual Analog Scale. The current opiate medications are providing sufficient analgesia to allow the patient to participate in activities of daily living. The patient is not exhibiting any aberrant behavior suggestive of drug diversion. The patient is not having any adverse reactions to medications. The patient is not suffering from daytime somnolence or mental acuity changes. The patient is managing opiate-induced constipation with appropriate rrej-vyl-ddfgoti agents and dietary considerations. The patient was counseled on concern for caution with operating a motor vehicle while using opiate medications. A physical exam was performed and the patient's functional status was evaluated. All patients with back pain were advised against the bed rest greater than 4 days and were advised to return to normal activities. Pain score assessment was noted and the treatment plan was reviewed with the patient. All current medications, both prescribed and OTC were reviewed and reconciled on the electronic medical record. Tobacco screening was accomplished and smoking cessation was advised when indicated. BMI was noted and diet/exercise modification was recommended for all patients following outside normal parameters. I reviewed with the patient today their responsibilities to safeguard prescription medications, reviewed their responsibility to utilize medications [address] [address] PAIN MANAGEMENT CONSULTATION Name: RUPA NELSON [id number] Admission: 10/25/18 ������������������ Attend Phys: Vee BRANDY Rodríguezwerner Discharge: ������������������ Date of : 54 Report #: [id number] only as prescribed by the physician. They are to seek and receive pain medications only from 1 physician group ( [facility]). They are to use 1 pharmacy and keep the clinic informed if they change pharmacies. Their responsibilities include making followup visits in a timely fashion and to avoid abrupt discontinuation of medication usage. Their responsibilities further include bringing their medications (bottles from the pharmacy with residual pills) to the visit for possible confirmation of pill counts and the patient understands it is their responsibility to submit to random drug screens to ensure both that the medications prescribed are present, and that no other controlled substances are present. All prescriptions provided today were generated electronically. PLAN: We discussed treatment options today. We discussed that per our records, the patient has a prescription from March of Neurontin, that is why we did not give her any refill for gabapentin her last visit. The patient tells me that [facility] has been telling her she has no refills and she has about 2 days left of medications. She tells us that they have also sent notification that she needs a refill and that we denied it. I do not see record of any indication of that. We called the [facility] and they informed us that the patient's last prescription was filled off of August prescription they had on file. The patient is unsure where her March prescription was then, so we called in to [facility] her 90-day supply with 2 additional refills, which is a total of #315 pills with 2 refills to [facility]. We also then today, since she has 2 days of medication left, gave her a 1-month supply of gabapentin 800 mg, a total of #105 pills to fill here locally while she awaits her mail off prescription, which may take 1-2 weeks before she gets it. The patient is thankful for this and sorry about the misunderstanding. The patient will now be seen in about 3 months for her other medications. The patient seen in collaboration today with Dr. Lomeli. ��������������������������������������������� <ELECTRONICALLY SIGNED> ���������������������������������������� By: Vee Jasso ��������������������������������������������� 10/26/18 [id number] Vee Jasso /nt
== END ==
LOC: PAIN 06:47
DX: M47.27 Other spondylosis with radiculopathy, lumbosacral region (principal); M48.062 Spinal stenosis, lumbar region with neurogenic claudication; G89.4 Chronic pain syndrome; M25.551 Pain in right hip; M25.552 Pain in left hip; Z79.899 Other long term (current) drug therapy